=== PATIENT | female | born 1950 | race Caucasian/White ===

== ENCOUNTER 2020-01-21 07:42 | Outpatient (CLI) | payer MEDICARE, SELFPAY ==
[2020-01-21 08:16] LABS: Basophils Absolute Auto 0.1 K/mm3 (0.0-0.1); Basophils Percent Auto 0.9 % (0.2-1.2); Eosinophils Absolute Auto 0.1 K/mm3 (0-0.3); Eosinophils Percent Auto 2.2 % (0-4.4); Hematocrit 43.6 % (37.0-47.0); Hemoglobin 14.4 g/dL (12.0-15.0); Immature Granulocyte Absolute 0.01 K/mm3 (0.00-0.031); Immature Granulocyte Percent A 0.2 % (0-0.5); Lymphocytes Percent Auto 24.9 % (18.3-44.2); Mean Corpuscular Hemoglobin 29.9 pg (26-34); Mean Corpuscular Volume 90.5 fl (80-100); Mean Platelet Volume 10.2 fl (7.4-10.4); Monocytes Absolute Auto 0.4 K/mm3 (0.1-0.6); Monocytes Percent Auto 6.2 % (2.6-8.5); Neutrophils Absolute Auto 4.2 K/mm3 (1.3-6.7); Neutrophils Percent Auto 65.6 % (45.5-73.1); Platelet Count Result 263 k/mm3 (150-375); Red Blood Count 4.82 M/mm3 (4.2-5.4); White Blood Count 6.4 K/mm3 (4.5-10.0)
[2020-01-21 08:29] LABS: Alanine Aminotransferase 26 U/L (4-35); Albumin Level 3.9 g/dL (3.5-5.1); Alkaline Phosphatase 111 U/L (38-126); Aspartate Amino Transferase 27 U/L (14-36); Bilirubin,Total 0.4 mg/dL (0.2-1.3); Blood Urea Nitrogen 14 mg/dL (7-17); Calcium 9.1 mg/dL (8.4-10.2); Carbon Dioxide 29 mmol/L (22-30); Chloride 106 mmol/L (98-107); Cholesterol 165 mg/dL (0-200); Estimated Glomerular Filt Rate > 60; Glucose 98 mg/dL (65-105); HDL Direct 63 mg/dL; Potassium 4.2 mmol/L (3.4-5.0); Sodium 138 mmol/L (137-145); Triglycerides 68 mg/dL (<150)
[2020-01-21 08:45] LABS: LDL Cholesterol Direct 95 mg/dL
[2020-01-21 09:53] LABS: Thyroid Stimulating Hormone 0.713 uIU/mL (0.465-4.680)
[2020-01-21 15:36] LABS: T4 Thyroxine 9.35 ug/dL (5.53-11.0)
== END 2020-01-21 07:43 | disposition home or self-care (01) ==
PROVIDERS: PCP Family Medicine
DX: E78.5 Hyperlipidemia, unspecified (principal)
CPT/HCPCS: 36415; 80053; 80061; 84436; 84443; 85025

== ENCOUNTER 2020-03-01 02:33 | Emergency (ER) | payer MEDICARE, SELFPAY ==
--- NOTE | ~2020-03-01 | CT_ITS ---
EXAMINATION: CT brain wo con INDICATION: Head injury COMPARISON: None TECHNIQUE: Standard unenhanced head CT. The dose-length product (DLP) was 605.33 mGy-cm. The mA was a djusted according to patient size. Iterative reconstruction technique was employed. FINDINGS: There is no acute intraparenchymal hemorrhage. No evidence of mass lesion. No evidence of a cute infarction. There is mild periventricular and subcortical hypodensity probably related to small vessel ischemic disease. There is mild prominence of the sulci and ventricles related to cerebral atr ophy. Intracranial calcified cerebral atherosclerosis is noted. There are no extra-axial collections. There is no mass effect or midline shift. The orbits are unremarkable. There is a left supraorbital scalp soft tissue laceration. The visualized sinuses and mastoid air cells are well aerated. IMPRESSION: 1. No acute intracranial abnormality. 2. Age related findings. Reviewed, dictated and finalized at location B.
[2020-03-01 02:39] VITALS: BP 164/84; PULSE 77; RESP 19; TEMP 36.8; O2SAT 100
--- NOTE | 2020-03-01 02:49 | ED.WOUNDLAC ---
HPI - Wound/Laceration General Chief Complaint: Wound/Laceration Stated Complaint: fall Time Seen by Provider: 03/01/20 02:35 Source: patient Mode of arrival: ambulatory Limitations: no limitations History of Present Illness HPI narrative: 69 yo female who presents from home for evaluation of left foreahead laceration s/p fall. Patient states she was standing on bed reaching up to fan and she lost her balance. Once she lost her balance, she fell striking her head on the dresser. She denies LOC, headache, dizziness, nausea or vomiting. She also denies any additional injuries. She denies taking any anticoagulants. Onset (ago): minute(s) Related Data Allergies Allergy/AdvReac Type Severity Reaction Status Date / Time No Known Allergies Allergy Verified 01/12/20 09:04 Review of Systems Constitutional: Constitutional: Denies chills and Denies fever(s) Eyes: Eyes: Reports no additional eye complaints ENT: Reports system reviewed and no additional complaints, except as documented Gastrointestinal: Gastrointestinal: Denies nausea and Denies vomiting Musculoskeletal: Musculoskeletal: Denies back pain and Denies myalgias Neurologic: Denies vertigo, Denies dizziness, Denies syncope and Denies headache(s) [facility] Social History Social History (Updated 01/12/20 @ 09:07 by Cathy Jara) Smoking packs per day: 1 Smoking cigarettes per day: 20.0 Years smoked: 20 Smoking pack-years: 20.00 Smoking status: Former smoker Tobacco type: cigarettes Alcohol intake: never Substance use type: marijuana Gender identity (if verbalized by the patient): Female Exam Const: General: alert Orientation/consciousness: patient oriented x3 HENMT: Head: No palpable skull fracture present and other (large left forehead laceration going through left eyebrow to sikhism) Face and sinus: sinuses nontender and face symmetric Mouth: Yes Normal oral and palatal mucosa present and Yes lip normal Throat: posterior oropharynx normal and tonsils normal Eyes: Pupils: Equal, round and reactive pupils present EOM: EOMs intact bilaterally Chest: Chest palpation & inspection: normal inspection of the chest and no tenderness Resp: Effort & Inspection: normal respiratory effort Auscultation: clear to auscultation bilaterally Back/Spine/Pelvis: Cervical Spine: cervical ROM normal and No Cervical spine tenderness Skin: Other: 12 cm elliptical flap laceration to left forehead Neuro: General: patient oriented x3 and moves all extremities Course Vital Signs Vital signs: Vital Signs Temperature 98.3 F 03/01/20 02:39 Pulse Rate 77 03/01/20 02:39 Respiratory Rate 19 03/01/20 02:39 Blood Pressure 164/84 H 03/01/20 02:39 Pulse Oximetry 100 03/01/20 02:39 Temperature 98.2 F 03/01/20 04:36 Pulse Rate 81 03/01/20 04:36 Respiratory Rate 16 03/01/20 04:36 Blood Pressure 124/74 03/01/20 04:36 Pulse Oximetry 100 03/01/20 04:36 Procedures Laceration Laceration 1: Date: 03/01/20 Time: 03:45 Site: face Side (If applicable): left Size (cm): 12 Description: flap and clean Depth: simple, single layer Local Anesthetic: lidocaine 1% and with epi Amount of anesthesia used (mL): 5 Pre-repair: irrigated and irrigated extensively ====== Skin Level ====== Skin layer closed with: prolene Size (cm): 5-0 Number of sutures: 21 Technique: simple, interrupted ====== Subcutaneous Layer ====== ====== Muscle Layer ====== ====== Tendon Layer ====== Dressing: applied antibiotic ointment MDM - Wound/Laceration Imaging Data Radiologist's impression: CT head without contrast Large left supraorbital soft tissue laceration No evidence for calvarial fracture No evidence for acute intracranial abnormality Discharge Plan Discharge Clinical Impression: Laceration of eyebrow and forehead
[2020-03-01] MEDS: TETANUS,DIPHTHERIA,AC PERTUSSIS ADULT (0.5 ML) BOOSTRIX IM (03:06)
[2020-03-01 04:36] VITALS: BP 124/74; PULSE 81; RESP 16; TEMP 36.8; O2SAT 100
== END 2020-03-01 04:38 | disposition home or self-care (01) ==
PROVIDERS: Emergency Provider General Practice; PCP Family Medicine
DX: S01.81XA Laceration without foreign body of other part of head, initial encounter (principal); Z23 Encounter for immunization; Z87.891 Personal history of nicotine dependence; W01.190A Fall on same level from slipping, tripping and stumbling with subsequent striking against furniture, initial encounter
CPT/HCPCS: 12015; 70450; 90471; 90715; 96374; 99284; J0131

== ENCOUNTER → 2020-07-26 12:42 | Outpatient (CLI) | payer MEDICARE, SELFPAY ==
--- NOTE | ~2020-07-26 | MM_ITS ---
EXAMINATION: MM screening [facility] BI w pretty HISTORY: Screening TECHNIQUE: Craniocaudal and mediolateral oblique 3-D tomosynthesis images were obtained and synthetic 2-D images were generated. CAD analysis was submitted and interpreted. COMPARISON: 06/04/2019 BREAST PARENCHYMAL COMPOSITION: There are scattered areas of fibroglandular density. FINDINGS: There is no evidence of suspicious mass, calcification, or architectural distortion to sugg est malignancy in either breast. There has been no suspicious interval change. IMPRESSION: 1. No mammographic evidence of malignancy. 2. Recommend routine screening mammography in one year. BI-RADS Category 1: Negative Reviewed, dictated and finalized at location A.
== END ==
PROVIDERS: PCP Family Medicine; Visit Provider Family Medicine
DX: Z12.31 Encounter for screening mammogram for malignant neoplasm of breast (principal)
CPT/HCPCS: 77063; 77067

== ENCOUNTER 2021-03-02 10:15 | Outpatient (CLI) | payer MEDICARE, SELFPAY | END 2021-03-02 10:16 | disposition home or self-care (01) | LOC: ANHCOVIDVC 10:15 | PROVIDERS: PCP Family Medicine | DX: Z23 Encounter for immunization (principal) | CPT/HCPCS: 0001A; 91300 ==

== ENCOUNTER 2021-03-23 10:12 | Outpatient (CLI) | payer MEDICARE, SELFPAY | END 2021-03-23 10:13 | disposition home or self-care (01) | LOC: ANHCOVIDVC 10:13 | PROVIDERS: PCP Family Medicine | DX: Z23 Encounter for immunization (principal) | CPT/HCPCS: 0002A; 91300 ==

== ENCOUNTER 2021-06-05 08:13 | Outpatient (CLI) | payer MEDICARE, SELFPAY ==
[2021-06-05 08:49] LABS: Basophils Absolute Auto 0.1 K/mm3 (0.0-0.1); Basophils Percent Auto 1.3 % (0.2-1.2); Eosinophils Absolute Auto 0.2 K/mm3 (0-0.3); Eosinophils Percent Auto 2.5 % (0-4.4); Hematocrit 42.7 % (37.0-47.0); Hemoglobin 13.8 g/dL (12.0-15.0); Immature Granulocyte Absolute 0.02 K/mm3 (0.00-0.031); Immature Granulocyte Percent A 0.3 % (0-0.5); Lymphocytes Absolute Auto 1.25 K/mm3 (0.9-3.2); Mean Corpuscular HGB Conc 32.3 g/dl (32-36); Mean Corpuscular Hemoglobin 29.6 pg (26-34); Mean Corpuscular Volume 91.6 fl (80-100); Mean Platelet Volume 10.2 fl (7.4-10.4); Monocytes Absolute Auto 0.5 K/mm3 (0.1-0.6); Monocytes Percent Auto 7.6 % (2.6-8.5); Neutrophils Percent Auto 67.3 % (45.5-73.1); Platelet Count Result 262 k/mm3 (150-375); Red Blood Count 4.66 M/mm3 (4.2-5.4); Red Cell Distribution Width 12.8 % (11.5-14.5)
[2021-06-05 08:58] LABS: Alanine Aminotransferase 28 U/L (4-35); Alkaline Phosphatase 89 U/L (38-126); Anion Gap 5 mmol/L (8-16); Aspartate Amino Transferase 30 U/L (14-36); Bilirubin,Total 0.6 mg/dL (0.2-1.3); Blood Urea Nitrogen 12 mg/dL (7-17); Calcium 9.2 mg/dL (8.4-10.2); Carbon Dioxide 29 mmol/L (22-30); Chloride 104 mmol/L (98-107); Cholesterol 158 mg/dL (0-200); Estimated Glomerular Filt Rate > 60; Glucose 95 mg/dL (65-110); HDL Direct 67 mg/dL; Potassium 4.1 mmol/L (3.4-5.0); Sodium 138 mmol/L (137-145); Triglycerides 58 mg/dL (<150)
[2021-06-05 09:09] LABS: LDL Cholesterol Direct 62 mg/dL
[2021-06-05 09:27] LABS: Thyroid Stimulating Hormone 0.424 uIU/mL (0.465-4.680)
[2021-06-05 10:34] LABS: Free T4 Free Thyroxine 1.32 ng/mL (0.78-2.19)
[2021-06-08 23:09] LABS: Vitamin D 1,25 (OH)2 Total 61 pg/mL (18-72); Vitamin D2 1,25 (OH)2 <8 pg/mL; Vitamin D3 1,25 (OH)2 61 pg/mL
== END 2021-06-05 08:14 | disposition home or self-care (01) ==
LOC: ANHLAB 08:16
PROVIDERS: PCP Family Medicine; Visit Provider Physician Assistant
DX: E03.9 Hypothyroidism, unspecified (principal); E06.3 Autoimmune thyroiditis; F33.1 Major depressive disorder, recurrent, moderate; Z13.220 Encounter for screening for lipoid disorders
CPT/HCPCS: 36415; 80053; 80061; 82652; 84439; 84443; 85025

== ENCOUNTER 2021-08-09 01:04 | Day surgery (SDC) | payer MEDICARE, SELFPAY ==
[2021-07-27 13:14] VITALS: BMI 28.5
--- NOTE | 2021-08-08 17:19 | PM.HPGS ---
History of Present Illness History of Present Illness Consent: Risks, benefits, and alternatives have been discussed and questions answered. Patient agrees to proceed with procedure. Chief complaint: family hx of colon ca Narrative: Kerry Bhakta is a 71 year old female Referred for colon cancer screening. She does have a family history of colon cancer Review of Systems Review of Systems: All systems reviewed & are unremarkable except as noted in HPI and below PMFSH Past Medical History Medical History Hypothyroidism, acquired, autoimmune MDD (major depressive disorder), recurrent episode, moderate Surgical History Surgical History History of left knee replacement Family History Family History Mother Family history of arthritis Diabetes mellitus, Onset Age: 76 Sibling Diabetes mellitus Patient's sister is in good health Carcinoma of colon, Onset Age: 70 Father Patient's father is , Onset Age: 91 Social History Social History Social History: Smoking packs per day: 1 Smoking cigarettes per day: 20.0 Years smoked: 20 Smoking pack-years: 20.00 Smoking status: Never smoker Tobacco type: cigarettes Smoking end date: 11/18/10 Alcohol intake: never Substance use: current Substance use type: marijuana Living arrangements: with family Gender identity (if verbalized by the patient): Female Sexual Orientation (if Verbalized by the Patient): Straight or Heterosexual Spiritual care concerns: No Meds Home Medications and Allergies Home Medications Medication Instructions Recorded Confirmed Type levothyroxine 25 mcg tablet 25 mcg PO DAILY #90 tablet 06/08/21 08/09/21 Rx tizanidine 4 mg tablet 4 mg PO BID PRN #180 tablet 06/08/21 08/09/21 Rx venlafaxine 150 mg 150 mg PO DAILY #90 cap 06/08/21 08/09/21 Rx capsule,extended release 24 hr Allergies Allergy/AdvReac Type Severity Reaction Status Date / Time No Known Allergies Allergy Verified 08/09/21 06:21 Exam Resp: Auscultation: clear to auscultation bilaterally Cardio: Rate: regular rate Rhythm: regular rhythm GI: GI Palp: Yes Soft to palpation and No Tenderness to palpation present (GI) Assessment and Plan Assessment and plan (1) Colon cancer screening: Code(s): Z12.11 - Encounter for screening for malignant neoplasm of colon Status: Acute Assessment and Plan: Colonoscopy with possible biopsy or polypectomy or cautery or injection of substances.
[2021-08-09 06:23] VITALS: BP 144/78; PULSE 91; RESP 16; TEMP 36.3; O2SAT 99
[2021-08-09] MEDS: LACTATED RINGERS 1,000 ML 150 ML IV CONT (06:26)
--- NOTE | 2021-08-09 06:50 | WPDANESEPPF ---
Anes - Initial Pre Proc Eval Procedure: Operation Date: 08/09/21 07:30 Proposed Procedures p Screening Colonoscopy - Bassam Bonilla MD Date/Time: 08/09/21 06:50 Surgeon: Bassam Bonilla MD Pre Op Diagnosis: family hx of colon ca Patient Data Age: 71 Gender: F Height: 1.6 m Weight: 73.6 kg Last Vital Signs Temp 36.3 C L 08/09/21 06:23 Pulse 91 08/09/21 06:23 Resp 16 08/09/21 06:23 BP 144/78 H 08/09/21 06:23 Pulse Ox 99 08/09/21 06:23 Allergies Allergy/AdvReac Type Severity Reaction Status Date / Time No Known Allergies Allergy Verified 08/09/21 06:21 Home Medications Medication Instructions Recorded Confirmed Type levothyroxine 25 mcg tablet 25 mcg PO DAILY #90 tablet 06/08/21 08/09/21 Rx tizanidine 4 mg tablet 4 mg PO BID PRN #180 tablet 06/08/21 08/09/21 Rx venlafaxine 150 mg 150 mg PO DAILY #90 cap 06/08/21 08/09/21 Rx capsule,extended release 24 hr Patient hx anesthesia problems: none Family hx anesthesia problems: none PMFSH Past Medical History Medical History (Updated 08/09/21 @ 06:52 by Scotty Schneider MD) Hypothyroidism, acquired, autoimmune MDD (major depressive disorder), recurrent episode, moderate Surgical History Surgical History (System 07/19/21 @ 09:33 by Antonieta Gerber) History of left knee replacement Family History Family History (System 07/19/21 @ 09:33 by Antonieta Gerber) Mother Family history of arthritis Diabetes mellitus, Onset Age: 76 Sibling Diabetes mellitus Patient's sister is in good health Carcinoma of colon, Onset Age: 70 Father Patient's father is , Onset Age: 91 Social History Social History (System 07/19/21 @ 09:33 by Antonieta Gerber) Social History: Smoking packs per day: 1 Smoking cigarettes per day: 20.0 Years smoked: 20 Smoking pack-years: 20.00 Smoking status: Never smoker Tobacco type: cigarettes Smoking end date: 11/18/10 Alcohol intake: never Substance use: current Substance use type: marijuana Living arrangements: with family Gender identity (if verbalized by the patient): Female Sexual Orientation (if Verbalized by the Patient): Straight or Heterosexual Spiritual care concerns: No Anes - Eval Final PreProcedure Day of Procedure 08/09/21 06:50 Patient weight: overweight Heart: regular rate and rhythm Lungs: clear to auscultation and normal air movement Airway: Mallampati scale class II Neurological: alert and oriented Last oral intake: >/= 8 hours ASA classification: II Emergent: no Anesthetic plan: proceed Anesthesia type and monitoring: general GIVS Informed Consent: The patient's anesthetic plan and its attendant risks and benefits were discussed with the patient/family/POA. Questions were solicited and answers provided to the satisfaction of the patient/family/POA.
--- NOTE | 2021-08-09 07:38 | SUR.OPER ---
cecal time 0708
[2021-08-09 07:50] VITALS: BP 108/57; PULSE 72; RESP 18; O2SAT 98
[2021-08-09 08:00] VITALS: BP 114/62; PULSE 73; RESP 22; O2SAT 100
[2021-08-09 08:06] VITALS: BP 131/70; PULSE 70; RESP 20; O2SAT 100
== END 2021-08-09 08:11 | disposition home or self-care (01) ==
PROVIDERS: PCP Family Medicine; Visit Provider Internal Medicine Gastroenterology
PROC: 0DJD8ZZ Inspection of Lower Intestinal Tract, Via Natural or Artificial Opening Endoscopic (ICD-10-PCS; CPT 45378; principal; 2021-08-09 07:30)
DX: Z12.11 Encounter for screening for malignant neoplasm of colon (principal); D12.4 Benign neoplasm of descending colon; K63.5 Polyp of colon; E03.9 Hypothyroidism, unspecified; F33.1 Major depressive disorder, recurrent, moderate; Z87.891 Personal history of nicotine dependence; F12.90 Cannabis use, unspecified, uncomplicated
CPT/HCPCS: 45380; 45385; 88305; J2704; J7120

== ENCOUNTER → 2021-08-15 10:28 | Outpatient (CLI) | payer MEDICARE, SELFPAY ==
--- NOTE | ~2021-08-15 | MM_ITS ---
EXAMINATION: MM screening [facility] BI w pretty HISTORY: Screening TECHNIQUE: Craniocaudal and mediolateral oblique 3-D tomosynthesis images were obtained and synthetic 2-D images were generated. CAD analysis was submitted and interpreted. COMPARISON: Comparison to multiple prior studies sequentially, with oldest reviewed study dated 06/04. BREAST PARENCHYMAL COMPOSITION: There are scattered areas of fibroglandular density. FINDINGS: There is no evidence of suspicious mass, calcification, or architectural distortion to sugg est malignancy in either breast. There has been no suspicious interval change. IMPRESSION: 1. No mammographic evidence of malignancy. 2. Recommend routine screening mammography in one year. BI-RADS Category 1: Negative Reviewed, dictated and finalized at location A.
== END ==
PROVIDERS: PCP Family Medicine; Visit Provider Family Medicine
DX: Z12.31 Encounter for screening mammogram for malignant neoplasm of breast (principal)
CPT/HCPCS: 77063; 77067

== ENCOUNTER 2022-01-23 12:31 | Outpatient (CLI) | payer MEDICARE, SELFPAY ==
--- NOTE | ~2022-01-23 | DEXA_ITS ---
Bone Density Report Name: ANUJA WALKER Age: 71 Sex: Female Ethnicity: White Date of : 1950 Indication: postmenopausal; screening for osteoporosis; height loss; prior fracture; Referring Provider: MartineFabián Corona Study: Bone densitometry was performed. Exam Date: January 23, 2022 Accession number: [id number] Bone Density: Region BMD T-score Z-score Classification AP Spine(L1, L2, L4) 1.214 1.6 3.8 Normal Femoral Neck (Left) 0.714 -1.2 0.6 Osteopenia Total Hip (Left) 0.798 -1.2 0.4 Osteopenia Femoral Neck (Right) 0.690 -1.4 0.4 Osteopenia Total Hip (Right) 0.795 -1.2 0.3 Osteopenia Femoral Neck Mean 0.702 -1.3 0.5 Osteopenia Total Hip Mean 0.797 -1.2 0.4 Osteopenia World Health Organization criteria for BMD impression classify patients as: Normal (T-score at or above -1.0), Osteopenia (T-score between -1.0 and -2.5), or Osteoporosis (T-score at or below -2.5). 10-year Fracture Risk(1): Major Osteoporotic Fracture 15% Hip Fracture 2.1% Reported Risk Factors: [place] (), Neck BMD=0.690, BMI=28.3, previous fracture (1) FRAX(R) Version 3.08. Fracture probability calculated for an untreated patient. Fracture probability may be lower if the patient has received treatment. Clinical Information Provided by Patient: Has had a low trauma fracture Has used the following medications: Vitamin D Patient maximum height was 64 Menopause Age: 51 No regular weight bearing exercise Drinks caffeinated beverages Onset of menses at age 12 Number of children 2 Impression: The patient has low bone mass, based on the Right Femoral Neck T-score. The patient has risk factors, including: previous fracture. Discussion: BONE DENSITY IS LOW AT ONE OR MORE SKELETAL SITES. This patient's lowest T-score is low at one or more skeletal sites. It meets the World Health Organization's (WHO) criteria for ?low bone mass? (T-score between -1.0 and -2.5). The patient's 10-year risk of fracture as calculated by FRAX is less than the threshold where pharmacological therapy is recommended by the National Osteoporosis Foundation (NOF). However, all treatment decisions require clinical judgment and consideration of individual patient factors, including patient preferences, comorbidities, previous drug use, risk factors not captured in the FRAX model (e.g., frailty, falls, vitamin D deficiency, increased bone turnover, interval significant decline in bone density) and possible under or overestimation of fracture risk by FRAX. The patient should follow a healthful lifestyle (good nutrition with adequate calcium and vitamin D, and appropriate weight-bearing exercise). Follow-Up: Consider repeating this study in 2 to 3 years to reassess this patient's status, or sooner if there is some new
== END 2022-01-23 12:32 | disposition home or self-care (01) ==
LOC: CHSIMG 12:33
PROVIDERS: PCP Family Medicine; Visit Provider Family Medicine
DX: M81.0 Age-related osteoporosis without current pathological fracture (principal)
CPT/HCPCS: 77080

== ENCOUNTER 2022-09-10 08:09 | Outpatient (CLI) | payer MEDICARE, SELFPAY ==
--- NOTE | ~2022-09-10 | MM_ITS ---
EXAMINATION: MM screening [facility] BI w pretty HISTORY: Screening mammogram TECHNIQUE: Craniocaudal and mediolateral oblique 3-D tomosynthesis images were obtained and synthetic 2-D images were generated. CAD analysis was submitted and interpreted. COMPARISON: 08/15/2021, 07/26/2020, 06/04/2019 BREAST PARENCHYMAL COMPOSITION: There are scattered areas of fibroglandular density. FINDINGS: No suspicious mass, calcification, or architectural distortion are identified in either sagrario ast to suggest malignancy. There has been no suspicious interval change. IMPRESSION: 1. No mammographic evidence of malignancy. 2. Recommend routine screening mammography in one year. BI-RADS Category 1: Negative Reviewed, dictated and finalized at location A.
== END 2022-09-10 08:10 | disposition home or self-care (01) ==
PROVIDERS: PCP Family Medicine; Visit Provider Family Medicine
DX: Z12.31 Encounter for screening mammogram for malignant neoplasm of breast (principal)
CPT/HCPCS: 77063; 77067

== ENCOUNTER 2023-12-17 07:18 | Outpatient (CLI) | payer MEDICARE, SELFPAY ==
--- NOTE | ~2023-12-17 | MM_ITS ---
EXAMINATION: MM screening [facility] BI w pretty HISTORY: Screening TECHNIQUE: Craniocaudal and mediolateral oblique 3-D tomosynthesis images were obtained and synthetic 2-D images were generated. CAD analysis was submitted and interpreted. COMPARISON: Comparison to multiple prior studies sequentially, with oldest reviewed study dated 06/04. BREAST PARENCHYMAL COMPOSITION: Breast composed of scattered areas of fibroglandular density FINDINGS: There are developing asymmetries in the right breast centered in the upper outer and lower inner quadrants of the right breast. The left breast is stable without evidence for malignancy. IMPRESSION: 1. Developing right breast asymmetries. 2. Additional mammographic views and possible breast ultrasound are recommended. BI-RADS Category 0: Incomplete: Needs additional imaging evaluation. Reviewed, dictated and finalized at location A. ATRIST IMPRESSION: 1. Developing right breast asymmetries. 2. Additional mammographic views and possible breast ultrasound are recommended . BI-RADS Category 0: Incomplete: Needs additional imaging evaluation.
== END 2023-12-17 07:19 | disposition home or self-care (01) ==
LOC: CHSIMG 07:19
PROVIDERS: PCP Family Medicine; Visit Provider Family Medicine
DX: Z12.31 Encounter for screening mammogram for malignant neoplasm of breast (principal); R92.8 Other abnormal and inconclusive findings on diagnostic imaging of breast
CPT/HCPCS: 77063; 77067

== ENCOUNTER 2023-12-23 08:46 | Outpatient (CLI) | payer MEDICARE, SELFPAY ==
--- NOTE | ~2023-12-23 | MMUS_ITS ---
EXAMINATION: MM diagnostic [facility] RT w pretty, US breast RT limited HISTORY: Right breast asymmetries on screening mammogram TECHNIQUE: Additional 3-D tomosynthesis images of the right breast were performed and synthetic 2-D i mages were generated. CAD analysis was submitted and interpreted. High resolution limited right breas t ultrasound was performed. COMPARISON: 12/17/2023, 09/10/2022, 08/15/2021 FINDINGS: MAMMOGRAPHIC FINDINGS: There is a return to baseline fibroglandular appearance with spot compression of the right breast in the areas questioned on screening mammogram. ULTRASOUND: There is a 3 mm mass at the 1:00 location, 7 cm from the nipple with the appearance of an intramammar y lymph node. No suspicious cystic or solid mass is identified. IMPRESSION: 1. No mammographic or sonographic evidence of malignancy. 2. Recommend routine screening mammography in one year. BI-RADS Category 2: Benign finding(s). Reviewed, dictated and finalized at location A. ING MACHINE OPERATOR/TENDER IMPRESSION: 1. No mammographic or sonographic evidence of malignancy. 2. Recommend routine screening mammography in one year. BI-RADS Category 2: Benign finding(s).
== END 2023-12-23 08:47 | disposition home or self-care (01) ==
LOC: CHSIMG 08:48
PROVIDERS: PCP Family Medicine; Visit Provider Family Medicine
DX: R92.8 Other abnormal and inconclusive findings on diagnostic imaging of breast (principal)
CPT/HCPCS: 76642; 77061; 77065; G0279

== ENCOUNTER 2024-10-08 16:33 | Outpatient (RCR) | payer MEDICARE, SELFPAY ==
--- NOTE | 2024-10-08 17:39 | OPREHPOC ---
Outpatient Therapy Plan of Care This is a Multidisciplinary Plan of Care that may contain components documented by all disciplines (PT, OT, and ST.) PT Problem 1 PT Problem #1 Knowledge Deficit PT Goal 1 Goal / Goal Update The patient will be independent in a home exercise program. Target Visit 4 PT Problem 2 PT Problem #2 Pain PT Goal 1 Goal / Goal Update The patient will report no greater than 2/10 right knee or bilateral hip pain with walking 1,000 feet. Target Visit 12 PT Problem 3 PT Problem #3 Impaired Range of Motion PT Goal 1 Goal / Goal Update The patient will demonstrate 0-120 degrees right knee AROM to improve gait. Target Visit 12 PT Problem 4 PT Problem #4 Impaired Functional Mobil PT Goal 1 Goal / Goal Update 1. The patient will demonstrate 35% or less self perceived disability per the LEFS. 2. The patient will be able to ambulate 1,000 feet during the 6 minute walk test with the least restrictive device to improve community ambulation . Target Visit 12
--- NOTE | 2024-10-08 17:39 | PTOPEVAL1 ---
Assessment and note entered by Geraldine Kaur, PT Evaluation Information Assessment Status Evaluation Diagnosis R knee OA Other ICD-10 Condition Codes ( M17.11 PT) Onset 10/02/24 Subjective Information Kerry Bhakta reports she has osteoarthritis in the right knee and malalignment in the pelvis. She was referred for PT for pre-op total knee replacement. She has a history of left total knee replacement in 2019. She notes she is stumbling and has had some minor falls. She is able to stand for 20 minutes and she is limited to walking for 45 minutes. She also has pain in both hips with standing that her doctor attributes to her alignment issues. She uses Tylenol arthritis medication most days for pain. Reported Pain Level Pain Score 3,4: Self Report Assessment PT Clinical Summary Kerry hBakta presents with right knee pain and has been diagnosed with osteoarthritis. She also has bilateral hip pain. She has difficulty with prolonged standing and prolonged walking. She objectively demonstrates decreased right knee extension AROM, pelvic malalignment, decreased right knee and bilateral hip strength, and decreased functional abilities. She will benefit from skilled PT to address these limitations. Plan of Care Interventions Electrical Stimulation,Hot Pack/Cold Pack,Manual Therapy,Neuro Re-education,Patient/Caregiver Educati,Therapeutic Activities,Therapeutic Exercise PT Services Indicated Yes Treatment Frequency and 2 times a week for 12 visits Duration These treatments will address the objective and functional deficits as defined above. The patient will be advanced safely and appropriately in order for the patient to progress towards his/her prior level of function. Additional exercises will be introduced and as well as a comprehensive home exercise program upon discharge, if needed, ?to ensure carryover of functional gains achieved in the clinic. This treatment plan has been reviewed and agreement upon by the patient.
--- NOTE | 2024-11-09 13:18 | OPREHPOC ---
Outpatient Therapy Plan of Care This is a Multidisciplinary Plan of Care that may contain components documented by all disciplines (PT, OT, and ST.) PT Problem 1 PT Problem #1 Knowledge Deficit PT Goal 1 Goal / Goal Update The patient will be independent in a home exercise program. Target Visit 4 Progress Met PT Problem 2 PT Problem #2 Pain PT Goal 1 Goal / Goal Update The patient will report no greater than 2/10 right knee or bilateral hip pain with walking 1,000 feet. Target Visit 12 Progress Met PT Problem 3 PT Problem #3 Impaired Range of Motion PT Goal 1 Goal / Goal Update The patient will demonstrate 0-120 degrees right knee AROM to improve gait. Target Visit 12 Progress Met PT Problem 4 PT Problem #4 Impaired Functional Mobility PT Goal 1 Goal / Goal Update 1. The patient will demonstrate 35% or less self perceived disability per the LEFS. 2. The patient will be able to ambulate 1,000 feet during the 6 minute walk test with the least restrictive device to improve community ambulation . Target Visit 12 Progress Partially Met
--- NOTE | 2024-11-09 13:18 | PTOPPROGNS ---
Assessment and note entered by JT File, PT Evaluation Information Assessment Status Progress Diagnosis R knee OA Other ICD-10 Condition Codes ( M17.11 PT) Onset 10/02/24 Subjective Information patient reports she is feeling pretty good today . she reports he her do feel aligned. she reports he hips bother her if she stands for long periods of time. she does report she still stumbles, but not as bad. Assessment PT Clinical Summary mrs. isabel presents to skilled PT services for her 10th skilled PT visit. she displays progress made in knee rom, bilateral LE strength, balance, and ambulation endurance/mechanics. she has met nearly all goals for skilled PT, and would benefit from continued skilled PT to address her remaining unmet goals to return to her full prior level functional activity performance/quality of life. Plan of Care Interventions Electrical Stimulation,Gait Training,Hot Pack/Cold Pack,Manual Therapy,Neuro Re-education,Patient/ Caregiver Education,Therapeutic Activities, Therapeutic Exercise PT Services Indicated Yes Treatment Frequency and continue skilled PT with initial POC Duration These treatments will address the objective and functional deficits as defined above. The patient will be advanced safely and appropriately in order for the patient to progress towards his/her prior level of function. Additional exercises will be introduced and as well as a comprehensive home exercise program upon discharge, if needed, ?to ensure carryover of functional gains achieved in the clinic. This treatment plan has been reviewed and agreement upon by the patient.
--- NOTE | 2024-11-19 08:40 | PTOPDC ---
Assessment and note entered by Geraldine Kaur, PT Evaluation Information Assessment Status Discharge Diagnosis R knee OA Other ICD-10 Condition Codes ( M17.11 PT) Onset 10/02/24 Subjective Information Kerry Bhakta reports her pain in her right knee and hips has decreased, she is stumbling a lot less, and she feels better overall. She is scheduled to see an orthopedic shoe fitter in December and will discuss a right knee replacement at that time. She reports no difficulty now with day to day activities. Reported Pain Level Pain Score 0: Self Report Assessment PT Clinical Summary Kerry Bhakta has completed 12 skilled PT visits for right knee and bilateral hip pain. She is reporting less pain, less stumbling, and return to performing all previous activities without difficulty since initiating PT. She objectively demonstrates improved right knee AROM to 0-135 degrees, improved balance, improved gait, improved hip and knee strength, improved core stability, and equal pelvic alignment. She has met all goals and will be discharged to an independent [facility]. Plan of Care PT Services Indicated No
== END 2024-11-19 08:59 | disposition home or self-care (01) ==
LOC: CHSPT 16:33
PROVIDERS: Visit Provider Physician Assistant Surgical
DX: M17.11 Unilateral primary osteoarthritis, right knee (principal)
CPT/HCPCS: 97014; 97110; 97112; 97140; 97161; 97530; 97750; G0283

== ENCOUNTER 2025-01-26 13:23 | Outpatient (CLI) | payer MEDICARE, SELFPAY ==
--- NOTE | ~2025-01-26 | MM_ITS ---
EXAMINATION: MM screening [facility] BI w pretty HISTORY: Screening mammogram TECHNIQUE: Craniocaudal and mediolateral oblique 3-D tomosynthesis images were obtained and synthetic 2-D images were generated. CAD analysis was submitted and interpreted. COMPARISON: 12/23/2023, 12/17/2023, 09/10/2022 BREAST PARENCHYMAL COMPOSITION:Not Dense. There are scattered areas of fibroglandular density. FINDINGS: No suspicious mass, calcification, or architectural distortion are identified in either sagrario ast to suggest malignancy. There has been no suspicious interval change. IMPRESSION: No mammographic evidence of malignancy. Recommend routine screening mammography in one year. BI-RADS Category 1: Negative Reviewed, dictated and finalized at location .
--- OUTSIDE RECORDS SUMMARY | 2025-01-26 14:55 | XMS_ITS | Clinical Summary ---
Author Organization [facility] Address Count includes the [facility] [place] [address] Care Team Providers Care Senior Software Engineering Manager Name Role Phone Fabián Farley MD Primary Care Provider Allergies Active Allergy Reactions Criticality Noted Date Comments Moxifloxacin Unknown 08/06/2017 Stomach pain Medications levothyroxine (SYNTHROID) 25 MCG tablet 11/08/2022 Active meloxicam (MOBIC) 15 MG tablet 11/30/2022 Active tiZANidine (ZANAFLEX) 4 MG tablet 11/22/2022 Active venlafaxine XR (EFFEXOR-XR) 150 MG 24 hr capsule Take 1 capsule (150 mg total) by mouth daily. Active Vitamin D3 (CHOLECALCIFERO L) 50 mcg tablet Take 1 tablet (2,000 Units total) by mouth daily. Active Active Problems No known active problems Social History Tobacco Use Types Packs/Day Years Used Date Smoking Tobacco: Former Cigarettes Q uit: 2013 Smokeless Tobacco: Never Alcohol Use Standard Drinks/Week Comments Not Currently 0 (1 standard drink = 0.6 oz pur e alcohol) Comments Unknown Sex and Gender Information Value Date Recorded Sex Assigned at Not on file Legal Sex Female 7:03 PM [employer] Gender Identity Not on file Sexual Orientation Not on file Last Filed Vital Signs Vital Sign Reading Time Taken Comments Blood Pressure - - Pulse - - Temperature - - Respiratory Rate - - Oxygen Saturation - - Inhaled Oxygen Concentration - - Weight 70.3 kg (155 lb) 04/26/2023 7:52 AM CDT Height 160 cm (5' 3 ) 04/26/2023 7:52 AM CDT Body Mass Index 27.46 04/26/2023 7:52 AM CDT Plan of Treatment Health Maintenance Due Date Last Done Comments Colorectal Cancer Screening Colonoscopy (10 Years) 1951 Hepatitis C 1969 DTaP, Tdap and Td Vaccines ( 1 - Tdap) 1970 Mammogram Screening 1991 Zoster Vaccines (1 of 2) 2001 Annual Medicare Wellness Visit 2016 Dexa Scan (General) 2016 Pneumococcal Vaccine: 65+ Years (1 of 1 - PCV) 2016 COVID-19 Vaccine (3 - 2023-2 5 season) 2024 03/23/2021, 03/02/2021 Influenza Adult (#1) 2024 09/02/2020 RSV Immunization or 60+ Years (1 - 1-dose 75+ series) 2026 Meningococcal B Vaccine Aged Out No l onger eligible based on patient's age to complete this topic Meningococcal Vaccine Aged Out No susie fabien eligible based on patient's age to complete this topic RSV Immunizations Under 20 Months Aged Out No longer eligible b ased on patient's age to complete this topic Insurance MEDICARE [facility] Care Teams Senior Software Engineering Manager Relationship Specialty Start Date End Date Fabián Farley MD [address] [place] [address] PCP - General FAMILY PRACTICE 07/18/21
== END 2025-01-26 13:24 | disposition home or self-care (01) ==
PROVIDERS: PCP Family Medicine; Visit Provider Family Medicine
DX: Z12.31 Encounter for screening mammogram for malignant neoplasm of breast (principal)
CPT/HCPCS: 77063; 77067